=== PATIENT | male | born 1960 | race Caucasian/White ===

== ENCOUNTER → 2019-05-20 09:54 | Emergency (ER) | payer OTHER ==
[~2019-05-20 09:54] MED LIST: Azithromycin TAB* 250 MG PO ONE
== END | disposition left against medical advice (07) ==
LOC: UCEAST 09:54
DX: Z53.8 Procedure and treatment not carried out for other reasons (principal)
CPT/HCPCS: A9270-GY

== ENCOUNTER 2019-05-20 15:14 | Emergency (ER) | payer OTHER ==
[2019-05-20 16:22] VITALS: BP 133/93
--- NOTE | 2019-05-20 17:01 | UC ---
Respiratory Complaint HPI - HPI Summary HPI Summary: Cough, nasal congestion, and low grade fever x3 wk. has tried all otc meds w/ no relief. nothing makes it better/worse. may have been in contact w/ someone sick. - History of Current Complaint Chief Complaint: UCRespiratory Stated Complaint: COUGH Time Seen by Provider: 05/20/19 16:34 Hx Obtained From: Patient Pain Intensity: 1 - Allergies/Home Medications Allergies/Adverse Reactions: Allergies Allergy/AdvReac Type Severity Reaction Status Date / Time No Known Allergies Allergy Verified 05/20/19 16:23 PMH/Surg Hx/FS Hx/Imm Hx - Additional Past Medical History Additional PMH: no chronic conditions. Previously Healthy: Yes - Surgical History Surgical History: Yes Surgery Procedure, Year, and Place: TONSILLECTOMY-AGE 4. COLONOSCOPY - Family History Known Family History: Positive: Non-Contributory - Social History Alcohol Use: Occasionally Alcohol Amount: 1 BEER A WEEK Substance Use Type: Marijuana Substance Use Comment - Amount & Last Used: MJ A FEW TIMES A WEEK Smoking Status (MU): Never Smoked Tobacco Review of Systems All Other Systems Reviewed And Are Negative: Yes Constitutional: Positive: Chills, Fatigue. Negative: Fever Respiratory: Positive: Cough. Negative: Shortness Of Breath Cardiovascular: Negative: Palpitations, Chest Pain Neurological: Negative: Headache, Weakness Physical Exam Triage Information Reviewed: Yes Appearance: Well-Appearing Vital Signs: Initial Vital Signs Temp 98.7 F 05/20/19 16:20 Pulse 78 05/20/19 16:20 Resp 12 05/20/19 16:20 BP 133/93 05/20/19 16:20 Pulse Ox 99 05/20/19 16:20 Vital Signs Reviewed: Yes Eyes: Positive: Conjunctiva Clear ENT: Positive: Pharynx normal, TMs normal, Uvula midline Neck: Positive: Supple, Nontender, No Lymphadenopathy Respiratory Exam: Normal Cardiovascular Exam: Normal Neurological: Positive: Alert Skin: Negative: Rashes Respiratory Course/Dx - Course Course Of Treatment: Subacute uri symptoms w/ trial/failure of otc meds. Vitals good. exam unremarkable. discussed the use of antibx and how they may not help in this case as I suspect viral etiology. we reviewed side effects of antibx as well. he decided to take antibx. - Differential Dx/Diagnosis Differential Diagnosis/HQI/PQRI: Bronchitis, Sinusitis, Other Provider Diagnosis: Bronchitis Discharge ED - Sign-Out/Discharge Documenting (check all that apply): Patient Departure All imaging exams completed and their final reports reviewed: No Studies - Discharge Plan Condition: Good Disposition: HOME Prescriptions: Azithromycin TAB* [Zithromax TAB (Z-ALEXA) 250 mg #6 tabs] 2 tab PO .TODAY, THEN 1 DAILY #1 alexa Patient Education Materials: Acute Cough (ED) Referrals: Soco Davis MD [Primary Care Provider] - Additional Instructions: If not improving please follow up with your pcp - Billing Disposition and Condition Condition: GOOD Disposition: Home - Attestation Statements Provider Attestation: I was available for consult. This patient was seen by the NELA. The patient was not presented to , seen by or examined by sc -Nick Thomson MD
[2019-05-20] MEDS ORDERED: Azithromycin TAB* 250 MG PO ONE (20:06)
== END 2019-05-20 17:28 | disposition home or self-care (01) ==
LOC: UCEAST 15:14
DX: J40 Bronchitis, not specified as acute or chronic (principal)
CPT/HCPCS: 99212; G0463

== ENCOUNTER 2019-08-24 10:12 | Emergency (ER) | payer OTHER ==
[2019-08-24 10:20] VITALS: BP 141/88
--- NOTE | 2019-08-24 10:59 | UC ---
Skin Complaint HPI - HPI Summary HPI Summary: He has had an itchy rash for several days. It is on his hands and his buttocks. It does not hurt at all. He is worried it might be shingles or alternatively from his hot tub. - History of Current Complaint Chief Complaint: UCSkin Time Seen by Provider: 08/24/19 10:39 Stated Complaint: RASH Pain Intensity: 0 - Allergy/Home Medications Allergies/Adverse Reactions: Allergies Allergy/AdvReac Type Severity Reaction Status Date / Time No Known Allergies Allergy Verified 08/24/19 10:20 Home Medications: Home Medications Fluticasone DISKUS 100 MCG(NF) 1 puff INH DAILY 08/24/19 [History Confirmed ] PMH/Surg Hx/FS Hx/Imm Hx Previously Healthy: Yes - Surgical History Surgical History: Yes Surgery Procedure, Year, and Place: TONSILLECTOMY-AGE 4. COLONOSCOPY - Family History Known Family History: Positive: Non-Contributory - Social History Alcohol Use: Occasionally Alcohol Amount: 1 BEER A WEEK Substance Use Type: Marijuana Substance Use Comment - Amount & Last Used: MJ A FEW TIMES A WEEK Smoking Status (MU): Never Smoked Tobacco Review of Systems All Other Systems Reviewed And Are Negative: Yes Skin: Positive: Rash Physical Exam - Summary Physical Exam Summary: He is nontoxic in appearance with stable vitals Triage Information Reviewed: Yes Appearance: Well-Appearing Vital Signs: Initial Vital Signs Temp 98.7 F 08/24/19 10:17 Pulse 64 08/24/19 10:17 Resp 16 08/24/19 10:17 BP 141/88 08/24/19 10:17 Pulse Ox 100 08/24/19 10:17 Vital Signs Reviewed: Yes ENT Exam: Normal Skin Exam: Other - He has a dry scaly rash on his left parasacral area and bilaterally slightly on his buttocks. He also has some vesicular lesions on his fingers. Course/Dx - Course Course Of Treatment: This does not look like a shingles rash to me or a hot tub folliculitis. It is dry and scaly consistent with some eczema. I don't think there is a fungal infection. I'm going to treat him with some topical steroids at this point and have him follow-up with his PCP. - Diagnoses Provider Diagnosis: Rash and nonspecific skin eruption Discharge ED - Sign-Out/Discharge Documenting (check all that apply): Patient Departure All imaging exams completed and their final reports reviewed: No Studies - Discharge Plan Condition: Stable Disposition: HOME Patient Education Materials: Dermatitis (ED) Referrals: No Primary Care Phys,NOPCP [Primary Care Provider] - [facility] [Outside] - Billing Disposition and Condition Condition: STABLE Disposition: Home
== END 2019-08-24 11:08 | disposition home or self-care (01) ==
LOC: UCEAST 10:12
DX: R21 Rash and other nonspecific skin eruption (principal)
CPT/HCPCS: 99212; G0463